=== PATIENT | female | born 1935 | race Caucasian/White ===

== ENCOUNTER 2021-02-11 12:48 | Inpatient (IN) ==
[2021-02-11] MEDS ORDERED: methylPREDNISolone 125 MG/2 ML VIAL IM ONE (13:55)
[2021-02-11] MEDS ORDERED: Acetaminophen 325 MG TABLET PO ONE (13:55)
[2021-02-11] MEDS ORDERED: *HR* HYDROmorphone (PF) 1 MG/ML SYRINGE IVP ONE (16:21)
[2021-02-11] MEDS ORDERED: 0.9 % Sodium Chloride 1,000 ML IV ONE (17:42)
[2021-02-11] MEDS ORDERED: Isovue-370 500 ML BOTTLE IVP ONE (17:42)
[2021-02-11 18:11] LABS: Amorphous Sediment,Urine Few per hpf (None-Few); Bacteria,Urine Few per hpf (None-Few); Bilirubin,Urine Negative (Negative); Blood,Urine Trace (Negative); Clarity,Urine Clear (Clear); Color,Urine Light-Yellow (Yellow); Glucose,Urine (UA) Normal (Normal); Ketones,Urine Negative (Negative); Leukocyte Esterase,Urine Large (Negative); Mucus,Urine Few per lpf (None-Few); Nitrite,Urine Negative (Negative); PH,Urine 7.5 pH Units (5.0-8.0); Protein,Urine Trace mg/dL (Neg-Trace); Specific Gravity,Urine 1.016 (1.010-1.025); Squamous Epithelial Cell,Urine Few per hpf (None-Few); Urobilinogen,Urine Normal (Normal); WBC,Urine 15-30 per hpf (0-3)
[2021-02-11 18:19] LABS: Basophils % 0.4 %; Hematocrit 45.2 % (35.3-44.9); Hemoglobin 15.1 g/dL (11.5-15.4); Lymphocytes # 1.2 K/mcL (0.6-4.6); Lymphocytes % 14.4 %; Mean Corpuscular HGB Conc 33.4 g/dL (31.6-35.5); Mean Corpuscular Hemoglobin 33.6 pg (28.0-33.3); Mean Corpuscular Volume 100.7 fL (83.0-100.0); Mean Platelet Volume 9.6 fL (9.4-12.4); Monocytes # 0.1 K/mcL (0.0-1.3); Monocytes % 1.2 %; Neutrophils # 6.7 K/mcL (1.6-8.9); Platelet Count 230 K/mcL (140-400); Red Blood Count 4.49 M/mcL (3.82-4.97); Red Cell Distribution Width 12.8 % (11.5-14.5); White Blood Count 8.1 K/mcL (4.3-11.1)
[2021-02-11 19:01] LABS: Calcium 9.3 mg/dL (8.6-10.3); Potassium 4.3 mEq/L (3.5-5.1)
[2021-02-11] MEDS ORDERED: cefTRIAXone 1,000 MG in Water for inj. (sterile) 10 ML IVP ONE (19:18)
[2021-02-11] MEDS ORDERED: *HR* OxyCODONE Immed Rel 5 MG TABLET PO PRN (22:52)
[2021-02-11] MEDS ORDERED: Naloxone 0.4 MG/ML INJ IVP PRN (22:52)
[2021-02-11] MEDS ORDERED: Ondansetron 4 MG/2 ML VIAL IVP PRN (22:52)
[2021-02-11] MEDS ORDERED: Acetaminophen 325 MG TABLET PO PRN (22:52)
[2021-02-11] MEDS ORDERED: *HR* HYDROcodone/Acet 5/325 mg TABLET PO PRN (22:52)
[2021-02-12] MEDS ORDERED: Ketorolac 15 MG/ML VIAL IVP PRN (00:53)
[2021-02-12] MEDS ORDERED: Gabapentin 300 MG CAPSULE PO ONE (00:54)
[2021-02-12 04:07] LABS: Basophils % 0.1 %; Hematocrit 43.9 % (35.3-44.9); Hemoglobin 14.8 g/dL (11.5-15.4); Immature Granulocytes % 0.6 % (0-4); Lymphocytes # 1.1 K/mcL (0.6-4.6); Lymphocytes % 8.9 %; Mean Corpuscular HGB Conc 33.7 g/dL (31.6-35.5); Mean Corpuscular Hemoglobin 33.6 pg (28.0-33.3); Mean Corpuscular Volume 99.5 fL (83.0-100.0); Mean Platelet Volume 9.8 fL (9.4-12.4); Monocytes # 0.1 K/mcL (0.0-1.3); Neutrophils # 10.6 K/mcL (1.6-8.9); Platelet Count 222 K/mcL (140-400); Red Blood Count 4.41 M/mcL (3.82-4.97); Red Cell Distribution Width 12.5 % (11.5-14.5); Segmented Neutrophils % 89.4 %; White Blood Count 11.8 K/mcL (4.3-11.1)
[2021-02-12 04:13] LABS: INR 1.2; Prothrombin Time 13.3 Seconds (9.4-12.1)
[2021-02-12 04:28] LABS: Calcium 8.7 mg/dL (8.6-10.3); Magnesium 1.9 mg/dL (1.6-2.6); Potassium 4.2 mEq/L (3.5-5.1)
[2021-02-12] MEDS ORDERED: *HR* HYDROmorphone (PF) 1 MG/ML SYRINGE IVP ONE (05:56)
[2021-02-12] MEDS: *HR* Heparin 5,000 UNIT/ML VIAL SQ SCH ×3 (06:18→20:26)
[2021-02-12] MEDS: cefTRIAXone 1,000 MG in Water for inj. (sterile) 10 ML IVP SCH (09:47)
[2021-02-12] MEDS ORDERED: *HR* LORazepam 2 MG/ML VIAL IVP ONE (10:15)
[2021-02-13] MEDS: *HR* Heparin 5,000 UNIT/ML VIAL SQ SCH ×3 (05:03→20:58)
[2021-02-13] MEDS: cefTRIAXone 1,000 MG in Water for inj. (sterile) 10 ML IVP SCH (08:33)
[2021-02-13] MEDS: Aspirin Enteric Coated 81 MG Tablet PO SCH (08:40)
[2021-02-13] MEDS: Gabapentin 400 MG CAPSULE PO SCH ×3 (13:45→20:58)
[2021-02-13] MEDS: Melatonin 3 MG TABLET PO PRN (20:58)
[2021-02-13] MEDS: Cefdinir 300 MG CAPSULE PO SCH (20:58)
[2021-02-14] MEDS: *HR* Heparin 5,000 UNIT/ML VIAL SQ SCH ×3 (05:35→21:59)
[2021-02-14] MEDS: Cefdinir 300 MG CAPSULE PO SCH ×2 (08:08→21:59)
[2021-02-14] MEDS: Gabapentin 400 MG CAPSULE PO SCH ×3 (08:08→21:59)
[2021-02-15] MEDS: *HR* Heparin 5,000 UNIT/ML VIAL SQ SCH ×3 (05:35→20:42)
[2021-02-15] MEDS: Cefdinir 300 MG CAPSULE PO SCH ×2 (08:07→19:46)
[2021-02-15] MEDS: Gabapentin 400 MG CAPSULE PO SCH ×3 (08:07→19:46)
[2021-02-15] MEDS: Melatonin 3 MG TABLET PO PRN (19:46)
[2021-02-16] MEDS: *HR* Heparin 5,000 UNIT/ML VIAL SQ SCH ×3 (05:14→20:14)
[2021-02-16] MEDS ORDERED: Methyl Salicylate/Menthol 85 APPL/85 GM TUBE TP PRN (10:07)
[2021-02-16] MEDS: Gabapentin 400 MG CAPSULE PO SCH ×3 (10:11→20:13)
[2021-02-16] MEDS: Cefdinir 300 MG CAPSULE PO SCH ×2 (10:11→20:13)
[2021-02-16] MEDS: Aspirin Enteric Coated 81 MG Tablet PO SCH (10:11)
[2021-02-16 16:18] LABS: Influenza A PCR Negative (Negative); Influenza B PCR Negative (Negative); Resp. Syncytial Virus PCR Negative (Negative)
[2021-02-16 16:33] LABS: SARS-CoV-2 by PCR (In House) Negative (Negative)
[2021-02-16] MEDS: Melatonin 3 MG TABLET PO PRN (20:13)
[2021-02-17] MEDS: *HR* Heparin 5,000 UNIT/ML VIAL SQ SCH ×2 (05:49→14:32)
[2021-02-17] MEDS: Cefdinir 300 MG CAPSULE PO SCH (08:44)
[2021-02-17] MEDS: Gabapentin 400 MG CAPSULE PO SCH ×2 (08:44→14:32)
[2021-02-17 11:33] VITALS: BP 123/76
== END 2021-02-17 17:40 | DRG 552 ==
LOC: EMEROOARM 12:48 → 3ANU 12:48 → SUATTDRO 22:29 → 3ANU 02-12 00:01 → SUATTDRO 02-13 16:24
PROVIDERS: ADMIT Family Medicine; ATTEND Student in an Organized Health Care Education/Training Program